=== PATIENT | male | born 1970 | race Caucasian/White ===

== ENCOUNTER 2023-04-13 13:50 | Inpatient (IN) | payer OTHER ==
[2023-04-13 14:41] VITALS: BMI 36.2
[2023-04-13] MEDS ORDERED: IBUPROFEN 600 MG TABLET (FP) PO PRN (19:29)
[2023-04-13] MEDS ORDERED: ACETAMINOPHEN 325 MG TABLET (FP) PO PRN (19:29)
[2023-04-13] MEDS ORDERED: NICOTINE 10 MG CARTRIDGE (INHALER) IH PRN (19:29)
[2023-04-13] MEDS ORDERED: DICYCLOMINE HCL 10 MG CAPSULE PO PRN (19:29)
[2023-04-13] MEDS ORDERED: IBUPROFEN 400 MG TABLET (FP) PO PRN (19:29)
[2023-04-13] MEDS ORDERED: MAG HYDROX/AL HYDROX/SIMETH 30 ML UNIT-DOSE CUP PO PRN (19:29)
[2023-04-13] MEDS ORDERED: POLYETHYLENE GLYCOL (HEALTHYLAX) 3350 17 GM PACKET PO PRN (19:29)
[2023-04-13] MEDS ORDERED: methaDONE HCL 10 MG TABLET (FOR DETOX USE ONLY) PO ONE (19:29)
[2023-04-13] MEDS ORDERED: guaiFENesin 600 MG TABLET.ER (FP) PO PRN (19:29)
[2023-04-13] MEDS ORDERED: NALOXONE HCL 0.4 MG/ML VIAL IM PRN (19:29)
[2023-04-13] MEDS ORDERED: ONDANSETRON *ODT* 4 MG TABLET SL PRN (19:29)
[2023-04-13] MEDS ORDERED: NALOXONE HCL (KLOXXADO) 8 MG SPRAY NS PRN (19:29)
[2023-04-13] MEDS ORDERED: BENZOCAINE/MENTHOL (CHLORASEPTIC ) LOZENGE MM PRN (19:29)
[2023-04-13] MEDS ORDERED: BISMUTH SUBSALICYLATE 524 MG/30 ML PO PRN (19:29)
[2023-04-13] MEDS ORDERED: MAGNESIUM HYDROX 2400MG/30ML ORAL SUSPENSION 30 ML CUP PO PRN (19:29)
[2023-04-13] MEDS ORDERED: LOPERAMIDE HCL 2 MG CAPSULE PO PRN (19:29)
[2023-04-13] MEDS ORDERED: BENZONATATE 200 MG CAPSULE PO PRN (19:29)
[2023-04-13] MEDS ORDERED: methaDONE HCL 10 MG TABLET (FOR DETOX USE ONLY) ONE (20:44)
[2023-04-13] MEDS: MELATONIN 5 MG TABLETS PO SCH (23:36)
[2023-04-13] MEDS: THIAMINE HCL 100 MG TABLET (FP) PO SCH (23:36)
[2023-04-13] MEDS: NICOTINE 21 MG/24 HOURS TOPICAL PATCH TD SCH (23:36)
[2023-04-13] MEDS: PRENATAL VITAMINS W/ FOLIC ACID TABLET (FP) PO SCH (23:36)
[2023-04-14] MEDS: NICOTINE 21 MG/24 HOURS TOPICAL PATCH TD SCH (10:40)
[2023-04-14] MEDS: PRENATAL VITAMINS W/ FOLIC ACID TABLET (FP) PO SCH (10:43)
[2023-04-14] MEDS: LOSARTAN 50MG/HCTZ 12.5MG 1 TAB PO SCH (10:43)
[2023-04-14 10:53] LABS: POTASSIUM 4.2 mmol/L (3.5-5.1)
[2023-04-14 11:02] LABS: HEMATOCRIT 39.3 % (35.4-49); HEMOGLOBIN 13.1 GM/dL (11.7-16.9); MCH 29.6 pg (25.7-33.7); MCHC 33.2 g/dl (32.0-35.9); MEAN PLT VOLUME 10.2 fl (7.5-11.1); PLATELET COUNT 183 10^3/uL (134-434); RBC 4.42 M/mm3 (4.00-5.60); RDW 12.9 % (11.9-15.9); WHITE BLOOD COUNT 6.1 K/mm3 (4.0-10.0)
[2023-04-14 11:06] LABS: ALBUMIN 3.5 g/dl (3.4-5.0); BLOOD UREA NITROGEN 14.7 mg/dL (7-18); CALCIUM 8.9 mg/dL (8.5-10.1)
[2023-04-14 11:09] LABS: CREATININE 0.8 mg/dL (0.55-1.3)
[2023-04-14 11:11] LABS: BILIRUBIN,TOTAL 1.2 mg/dL (0.2-1); TOT PROT 6.2 g/dl (6.4-8.2)
[2023-04-14] MEDS: cloNIDine HCL 0.1 MG TABLET PO PRN (22:22)
[2023-04-14] MEDS: MELATONIN 5 MG TABLETS PO SCH (22:22)
[2023-04-14] MEDS: METHOCARBAMOL 500 MG TABLET PO PRN (22:22)
[2023-04-14] MEDS: THIAMINE HCL 100 MG TABLET (FP) PO SCH (22:22)
[2023-04-15] MEDS ORDERED: methaDONE HCL 10 MG TABLET (FOR DETOX USE ONLY) PO ONE (10:00)
[2023-04-15] MEDS: NICOTINE 21 MG/24 HOURS TOPICAL PATCH TD SCH (10:38)
[2023-04-15] MEDS: PRENATAL VITAMINS W/ FOLIC ACID TABLET (FP) PO SCH (10:38)
[2023-04-15] MEDS: LOSARTAN 50MG/HCTZ 12.5MG 1 TAB PO SCH (10:39)
[2023-04-15] MEDS: cloNIDine HCL 0.1 MG TABLET PO PRN (20:07)
[2023-04-15] MEDS: MELATONIN 5 MG TABLETS PO SCH (22:27)
[2023-04-15] MEDS: METHOCARBAMOL 500 MG TABLET PO PRN (22:27)
[2023-04-15] MEDS: THIAMINE HCL 100 MG TABLET (FP) PO SCH (22:27)
[2023-04-16] MEDS: PRENATAL VITAMINS W/ FOLIC ACID TABLET (FP) PO SCH (10:14)
[2023-04-16] MEDS: LOSARTAN 50MG/HCTZ 12.5MG 1 TAB PO SCH (10:14)
[2023-04-16] MEDS: NICOTINE 21 MG/24 HOURS TOPICAL PATCH TD SCH (10:15)
[2023-04-16] MEDS: METHOCARBAMOL 500 MG TABLET PO PRN (22:10)
[2023-04-16] MEDS: MELATONIN 5 MG TABLETS PO SCH (22:10)
[2023-04-16] MEDS: THIAMINE HCL 100 MG TABLET (FP) PO SCH (22:10)
[2023-04-17] MEDS ORDERED: methaDONE HCL 10 MG TABLET (FOR DETOX USE ONLY) PO ONE (10:00)
[2023-04-17] MEDS: PRENATAL VITAMINS W/ FOLIC ACID TABLET (FP) PO SCH (10:22)
[2023-04-17] MEDS: LOSARTAN 50MG/HCTZ 12.5MG 1 TAB PO SCH (10:23)
[2023-04-17] MEDS: METHOCARBAMOL 500 MG TABLET PO PRN ×2 (10:23→22:14)
[2023-04-17] MEDS: NICOTINE 21 MG/24 HOURS TOPICAL PATCH TD SCH (10:25)
[2023-04-17] MEDS ORDERED: NICOTINE POLACRILEX 4 MG GUM BUC PRN (11:38)
[2023-04-17] MEDS ORDERED: BACLOFEN 10 MG TABLET (FP) PO ONE (12:26)
[2023-04-17 21:27] VITALS: RESP 18
[2023-04-17] MEDS: MELATONIN 5 MG TABLETS PO SCH (22:14)
[2023-04-17] MEDS: THIAMINE HCL 100 MG TABLET (FP) PO SCH (22:14)
[2023-04-18 05:52] VITALS: BP 145/80; PULSE 54; TEMP 97.8
[2023-04-18] MEDS: METHOCARBAMOL 500 MG TABLET PO PRN (05:55)
[2023-04-18] MEDS ORDERED: LOSARTAN POTASSIUM 50 MG TABLET PO SCH (10:00)
[2023-04-18] MEDS ORDERED: HYDROCHLOROTHIAZIDE 12.5 MG CAPSULE (FP) PO SCH (10:00)
== END 2023-04-18 09:34 | disposition home or self-care (01) | DRG 773 ==
LOC: YASAS 13:50 → Y6N 22:29
PROVIDERS: ADMIT Allergy & Immunology; ATTEND Surgery
PROC: HZ2ZZZZ Detoxification Services for Substance Abuse Treatment (ICD-10-PCS; principal; 2023-04-13)
DX: F11.23 Opioid dependence with withdrawal (principal); F17.213 Nicotine dependence, cigarettes, with withdrawal; I10 Essential (primary) hypertension; I73.9 Peripheral vascular disease, unspecified; Z86.711 Personal history of pulmonary embolism
CPT/HCPCS: 36415; 80053; 85027; 86780; 87635; J0475; Q0162